=== PATIENT | male | born 1960 | race Caucasian/White ===

== ENCOUNTER 2019-02-13 20:25 | Emergency (ER) | payer OTHER | END 2019-02-14 08:28 | disposition home or self-care (01) | LOC: JER 20:25 ==

== ENCOUNTER 2019-02-14 09:19 | Inpatient (IN) | payer OTHER ==
[2019-02-14 10:23] VITALS: BMI 26.6
--- NOTE | 2019-02-14 11:17 | HP ---
COWS - Scale Resting Pulse: 0= MA 80 or Below Sweatin= Chills/Flushing Restless Observation: 1= Difficult to Sit Still Pupil Size: 1= Pupils >than Normal Bone or Joint Aches: 2= Severe Diffuse Aches Runny Nose/ Eye Tearin= Runny Nose/Eyes GI Upset > 30mins: 1= Stomach Cramp Tremor Observation: 2= Slight Tremor Visible Yawning Observation: 1= 1-2x During Session Anxiety or Irritability: 2=Irritable/Anxious Goose Flesh Skin: 0=Smooth Skin COWS Score: 13 CIWA Score Nausea/Vomitin Muscle Tremors: 2 Anxiety: 2 Agitation: 3 Paroxysmal Sweats: 1-Minimal Palms Moist Orientation: 0-Oriented Tacttile Disturbances: 1-Very Mild Itch/Numbness Auditory Disturbances: 0-None Visual Disturbances: 0-None Headache: 2-Mild CIWA-Ar Total Score: 13 - Admission Criteria OASAS Guidelines: Admission for Medically Managed Detox: Requires at least one of the followin. CIWA greater than 12 2. Seizures within the past 24 hours 3. Delirium tremens within the past 24 hours 4. Hallucinations within the past 24 hours 5. Acute intervention needed for co occurring medical disorder 6. Acute intervention needed for co occurring psychiatric disorder 7. Severe withdrawal that cannot be handled at a lower level of care (continued vomiting, continued diarrhea, abnormal vital signs) requiring intravenous medication and/or fluids 8. Admission [facility] Chief Complaint: patient medically clear from er [facility] to [facility] for detox Allergies/Adverse Reactions: Allergies Allergy/AdvReac Type Severity Reaction Status Date / Time No Known Allergies Allergy Verified 02/14/19 10:10 History of Present Illness: this 59 years old with heroin and xanax ,klonopin dependence,seen in [facility] on but has swelling and erythema left leg for 1 week, sent to ER at [facility] had venous droppler negative for DVT was place on clindamycin 450 mgs po tid, history of hiv since 1991 non compliance with medication weight loss denied seizure denied syncope longest period of sobriety 3 years form 1989 to 1991 anxiety,depression,insomnia Exam Limitations: No Limitations - Ebola screening Have you traveled outside of the country in the last 21 days: No Have you had contact with anyone from an Ebola affected area: No Do you have a fever: No - Review of Systems Constitutional: Chills, Loss of Appetite, Malaise, Night Sweats, Changes in sleep, Weakness, Unintentional Wgt. Loss EENT: reports: Tearing, Nose Congestion Respiratory: reports: No Symptoms reported Cardiac: reports: No Symptoms Reported GI: reports: Nausea, Poor Appetite, Abdominal cramping : reports: No Symptoms Reported Integumentary: reports: Dryness Neuro: reports: Tremors Endocrine: reports: No Symptoms Reported Hematology: reports: No Symptoms Reported, Other (hiv) Psychiatric: reports: No Sypmtoms Reported, Judgement Intact, Mood/Affect Appropiate, Orientated x3 Other Systems: Reviewed and Negative Patient History - Patient Medical History Hx Anemia: No Hx Asthma: No Hx Chronic Obstructive Pulmonary Disease (COPD): No Hx Cancer: No Hx Cardiac Disorders: No Hx Congestive Heart Failure: No Hx Hypertension: No Hx Hypercholesterolemia: Yes Hx Pacemaker: No HX Cerebrovascular Accident: No Hx Seizures: No Hx Dementia: No Hx Diabetes: No Hx Gastrointestinal Disorders: No Hx Liver Disease: No Hx Genitourinary Disorders: No Hx Sexually Transmitted Disorders: Yes (Patient reported treated for HPV in the past.) Hx Renal Disease (ESRD): No Hx Thyroid Disease: No Hx Human Immunodeficiency Virus (HIV): Yes (since 1991 non compliance) Hx Hepatitis C: Yes Hx Depression: Yes Hx Suicide Attempt: No Hx Bipolar Disorder: No Hx Schizophrenia: No Other Medical History: no suicidal,no homicidal - Patient Surgical History Past Surgical History: Yes Hx Neurologic Surgery: No Hx Cataract Extraction: Yes (both eyes in 2009) Hx Cardiac Surgery: No Hx Lung Surgery: No Hx Breast Surgery: No Hx Breast Biopsy: No Hx Abdominal Surgery: No Hx Appendectomy: No Hx Cholecystectomy: No Hx Genitourinary Surgery: No Hx Section: No Hx Orthopedic Surgery: No Other Surgical History: biopsy lymph node left groin Anesthesia Reaction: No - PPD History Previous Implant?: Yes Documented Results: Negative w/o proof Implanted On Prior [facility] Admission?: Yes Date: 04/14/15 Results: 0 mm PPD to be Administered?: No - Smoking Cessation Smoking history: Current every day smoker Have you smoked in the past 12 months: Yes Aproximately how many cigarettes per day: 10 Cigars Per Day: 0 Hx Chewing Tobacco Use: No Initiated information on smoking cessation: Yes 'Breaking Loose' booklet given: 02/14/19 - Substance & Tx. History Hx Alcohol Use: No Hx Substance Use: Yes Substance Use Type: Heroin, Tranquilizers Hx Substance Use Treatment: Yes ([facility] rehab 04/12/15 to 05/18/15) - Substances abused Heroin Substance route: Inhalation Frequency: Daily Amount used: 2 bags Age of first use: 25 Date of last use: 02/13/19 Alprazolam (Xanax) Substance route: Oral Frequency: Daily Amount used: 2mg a day Age of first use: 35 Date of last use: 02/13/19 Benzodiazepine (Klonopin) Substance route: Oral Frequency: Daily Amount used: 5-6mg a day Age of first use: 40 Date of last use: 02/13/19 Family Disease History - Family Disease History Family History: Denies Admission Physical Exam S - Vital Signs Vital Signs: Vital Signs - 24 hr 02/14/19 02/14/19 10:09 10:50 Temperature 97.5 F L 97.5 F L Pulse Rate 70 70 Respiratory 14 14 Rate Blood Pressure 107/69 107/69 - Physical General Appearance: Yes: Moderate Distress, Tremorous, Irritable, Sweating, Anxious HEENTM: Yes: Normal ENT Inspection, MEHRDAD, Pharynx Normal Respiratory: Yes: Lungs Clear, Normal Breath Sounds, No Respiratory Distress Neck: Yes: Within Normal Limits, Supple, Trachea in good position Breast: Yes: Within Normal Limits Cardiology: Yes: Within Normal Limits, Regular Rhythm, Regular Rate, S1, S2 Abdominal: Yes: Within Normal Limits, Normal Bowel Sounds, Non Tender, Flat, Soft Genitourinary: Yes: Within Normal Limits Back: Yes: Muscle Spasm Extremities: Yes: Tremors, Erythema (erythema left leg with swelling varicose vein both legs), Inflammation Neurological: Yes: payment manager II-XII NML intact, Fully Oriented, Alert, Motor Strength 5/5 Integumentary: Yes: Dry Lymphatic: Yes: Within Normal Limits - Diagnostic (1) Opioid dependence with withdrawal Current Visit: Yes Status: Acute (2) Sedative, hypnotic or anxiolytic dependence with withdrawal, uncomplicated Current Visit: Yes Status: Acute (3) HIV (human immunodeficiency virus infection) Current Visit: No Status: Chronic (4) Weight decreased Current Visit: No Status: Active (5) Syncope Current Visit: Yes Status: Acute (6) Cellulitis of left lower extremity Current Visit: Yes Status: Acute (7) Insomnia secondary to depression with anxiety Current Visit: Yes Status: Acute (8) Nicotine dependence Current Visit: Yes Status: Acute Cleared for Admission [facility] - Detox or Rehab [facility] Level of Care: Medically Managed Detox Regimen/Protocol: Methadone/Valium Breathalyzer - Breathalyzer Breathalyzer: 0 Urine Drug Screen - Test Device Lot number: [id number] Expiration date: 11/01/19 - Control Is test valid?: Yes - Results Drug screen NEGATIVE: No Urine drug screen results: FEN-Fentanyl, MOP-Opiates, MTD-Methadone, BZO- Benzodiazepines, BUP-Suboxone Inpatient Rehab Admission - Rehab Decision to Admit Inpatient rehab admission?: No
[2019-02-14] MEDS ORDERED: MELATONIN 5 MG TABLETS PO PRN (11:42)
[2019-02-14] MEDS ORDERED: BISMUTH SUBSALICYLATE 524 MG/30 ML UD PO PRN (11:42)
[2019-02-14] MEDS ORDERED: hydrOXYzine PAMOATE 25 MG CAPSULE (FP) PO PRN (11:42)
[2019-02-14] MEDS ORDERED: IBUPROFEN 400 MG TABLET (FP) PO PRN (11:42)
[2019-02-14] MEDS ORDERED: MAGNESIUM HYDROX 2400MG/30ML ORAL SUSPENSION 30 ML CUP PO PRN (11:42)
[2019-02-14] MEDS ORDERED: METHOCARBAMOL 500 MG TABLET PO PRN (11:42)
[2019-02-14] MEDS ORDERED: MENTHOL/PHENOL 1 EACH UD MM PRN (11:42)
[2019-02-14] MEDS ORDERED: cloNIDine HCL 0.1 MG TABLET PO PRN (11:42)
[2019-02-14] MEDS ORDERED: ACETAMINOPHEN 325 MG TABLET (FP) PO PRN ×2 (11:42)
[2019-02-14] MEDS ORDERED: MAGNESIUM CITRATE 300 ML BOTTLE PO PRN (11:42)
[2019-02-14] MEDS ORDERED: MAG HYDROX/AL HYDROX/SIMETH 30 ML UNIT-DOSE CUP PO PRN (11:42)
[2019-02-14] MEDS ORDERED: diazePAM 5 MG TABLET PO PRN (11:42)
[2019-02-14] MEDS: diazePAM 5 MG TABLET PO SCH ×2 (13:44→22:07)
[2019-02-14] MEDS ORDERED: METHADONE HCL 10 MG TABLET (FOR DETOX USE ONLY) PO ONE (14:00)
[2019-02-14 15:12] LABS: ALBUMIN 3.5 g/dl (3.4-5.0); BILIRUBIN,TOTAL 0.7 mg/dL (0.2-1); BLOOD UREA NITROGEN 26.4 mg/dL (7-18); CALCIUM 8.6 mg/dL (8.5-10.1); CREATININE 1.2 mg/dL (0.55-1.3); POTASSIUM 4.1 mmol/L (3.5-5.1); TOT PROT 7.1 g/dl (6.4-8.2)
[2019-02-14 15:23] LABS: HEMATOCRIT 36.2 % (35.4-49); HEMOGLOBIN 12.1 GM/dL (11.7-16.9); MCH 29.7 pg (25.7-33.7); MCHC 33.5 g/dl (32.0-35.9); MEAN CELL VOLUME 88.6 fl (80-96); MEAN PLT VOLUME 9.8 fl (7.5-11.1); PLATELET COUNT 214 K/MM3 (134-434); RBC 4.08 M/mm3 (4.00-5.60); RDW 15.7 % (11.9-15.9); WHITE BLOOD COUNT 4.6 K/mm3 (4.0-10.0)
[2019-02-14] MEDS: CLINDAMYCIN HCL 150 MG CAPSULE (FP) PO SCH ×2 (16:05→22:07)
[2019-02-14] MEDS: THIAMINE HCL 100 MG TABLET (FP) PO SCH (22:07)
[2019-02-15] MEDS: diazePAM 5 MG TABLET PO SCH ×3 (06:17→22:10)
[2019-02-15] MEDS: CLINDAMYCIN HCL 150 MG CAPSULE (FP) PO SCH ×3 (06:17→22:10)
[2019-02-15] MEDS ORDERED: METHADONE HCL 5 MG TABLET (FOR DETOX USE ONLY) PO ONE (10:00)
[2019-02-15] MEDS: PRENATAL VITAMINS W/ FOLIC ACID TABLET (FP) PO SCH (10:29)
--- NOTE | 2019-02-15 15:44 | PN ---
S CIWA - CIWA Score Nausea/Vomitin Muscle Tremors: 3 Anxiety: 3 Agitation: 0-Normal Activity Paroxysmal Sweats: No Perspiration Orientation: 0-Oriented Tacttile Disturbances: 1-Very Mild Itch/Numbness Auditory Disturbances: 2-Mild Harshness/Frighten Visual Disturbances: 0-None Headache: 0-None Present CIWA-Ar Total Score: 11 S COWS - Scale Resting Pulse: 1= [place] 81-100 Sweatin= No chills or Flushing Restless Observation: 0= Sits Still Pupil Size: 0= Normal to Room Light Bone or Joint Aches: 0= None Runny Nose/ Eye Tearin= Nasal Congestion GI Upset > 30mins: 2= Nausea/Diarrhea Tremor Observation of Outstretched Hands: 2= Slight Tremor Visible Yawning Observation: 1= 1-2x During Session Anxiety or Irritability: 2=Irritable/Anxious Goose Flesh Skin: 3=Piloerection COWS Score: 12 S Progress Note (SOAP) Subjective: Anxious, Tremors, Fatigue, Interrupted Sleep. Objective: PATIENT A & O X 3, OBSERVED AMBULATING ON UNIT UNASSISTED. IN NO ACUTE DISTRESS. 02/15/19 15:42 Vital Signs Temperature 98.6 F 02/15/19 13:39 Pulse Rate 88 02/15/19 13:39 Respiratory Rate 18 02/15/19 13:39 Blood Pressure 120/88 02/15/19 13:39 O2 Sat by Pulse Oximetry (%) Laboratory Tests 02/14/19 02/14/19 02/14/19 11:45 11:45 11:45 WBC 4.6 RBC 4.08 Hgb 12.1 Hct 36.2 MCV 88.6 MCH 29.7 MCHC 33.5 RDW 15.7 Plt Count 214 MPV 9.8 Sodium 140 Potassium 4.1 Chloride 106 Carbon Dioxide 27 Anion Gap 7 L BUN 26.4 H Creatinine 1.2 Est GFR (CKD-EPI)AfAm 76.25 Est GFR (CKD-EPI)NonAf 65.79 Random Glucose 104 Calcium 8.6 Total Bilirubin 0.7 AST 63 H ALT 41 Alkaline Phosphatase 80 Total Protein 7.1 Albumin 3.5 RPR Titer Nonreactive LABS NOTED. RESULTS OF DETOX ADMISSION QFT /TB TEST PENDING. 02/15/19 15:43 Assessment: 02/15/19 15:43 WITHDRAWAL SYMPTOMS. ELEVATED AST LEVEL. Plan: CONTINUE DETOX. INCREASE DAILY PO WATER INTAKE.
[2019-02-15] MEDS: THIAMINE HCL 100 MG TABLET (FP) PO SCH (22:10)
[2019-02-16] MEDS: diazePAM 5 MG TABLET PO SCH ×2 (06:38→17:58)
[2019-02-16] MEDS: CLINDAMYCIN HCL 150 MG CAPSULE (FP) PO SCH ×3 (06:38→21:17)
[2019-02-16] MEDS ORDERED: METHADONE HCL 10 MG TABLET (FOR DETOX USE ONLY) PO ONE (10:00)
--- NOTE | 2019-02-16 10:57 | PN ---
[facility] CIWA - CIWA Score Nausea/Vomitin-Mild Nausea/No Vomiting Muscle Tremors: 1-None Visible, but [place] Anxiety: 1-Mildly Anxious Agitation: 0-Normal Activity Paroxysmal Sweats: No Perspiration Orientation: 0-Oriented Tacttile Disturbances: 0-None Auditory Disturbances: 0-None Visual Disturbances: 0-None Headache: 0-None Present CIWA-Ar Total Score: 3 S Progress Note (SOAP) Subjective: Patient is mildly in withdrawals. Some anxiety but more for planning after detox completion. He will confer with his sister about what he will do upon detox completion. Objective: 02/16/19 10:56 Vitals: BP:137/77 P:60 R:18 T:97.7 Laboratory 02/14/19 02/14/19 02/14/19 11:45 11:45 11:45 WBC 4.6 K/mm3 K/mm3 (4.0-10.0) RBC 4.08 M/mm3 M/mm3 (4.00-5.60) Hgb 12.1 GM/dL GM/dL (11.7-16.9) Hct 36.2 % % (35.4-49) MCV 88.6 fl fl (80-96) MCH 29.7 pg pg (25.7-33.7) MCHC 33.5 g/dl g/dl (32.0-35.9) RDW 15.7 % % (11.9-15.9) Plt Count 214 K/MM3 K/MM3 (134-434) MPV 9.8 fl fl (7.5-11.1) Sodium 140 mmol/L mmol/L (136-145) Potassium 4.1 mmol/L mmol/L (3.5-5.1) Chloride 106 mmol/L mmol/L (98-107) Carbon Dioxide 27 mmol/L mmol/L (21-32) Anion Gap 7 MMOL/L L MMOL/L (8-16) BUN 26.4 mg/dL H mg/dL (7-18) Creatinine 1.2 mg/dL mg/dL (0.55-1.3) Est GFR (CKD-EPI)AfAm 76.25 Est GFR (CKD-EPI)NonAf 65.79 Random Glucose 104 mg/dL mg/dL (74-106) Calcium 8.6 mg/dL mg/dL (8.5-10.1) Total Bilirubin 0.7 mg/dL mg/dL (0.2-1) AST 63 U/L H U/L (15-37) ALT 41 U/L U/L (13-61) Alkaline Phosphatase 80 U/L U/L (45-117) Total Protein 7.1 g/dl g/dl (6.4-8.2) Albumin 3.5 g/dl g/dl (3.4-5.0) RPR Titer Nonreactive (NONREACTIVE) Assessment: 02/16/19 10:57 1. Alcohol Dependence 2. Dehydration 3. LFT's abnormality Plan: 1. Alcohol Dependence Continue detox protocol 2. Dehydration: Apparent from elevated BUN Encourage PO Fluids. 3. Elevated AST: Noted and consistent with alcohol consumption. Advised that he must stop ETOH use as it will affect his liver with possible fatty liver and cirrhosis in the long run. Dr. Warner
[2019-02-16] MEDS: PRENATAL VITAMINS W/ FOLIC ACID TABLET (FP) PO SCH (11:03)
[2019-02-16] MEDS: THIAMINE HCL 100 MG TABLET (FP) PO SCH (21:17)
[2019-02-17] MEDS ORDERED: diazePAM 5 MG TABLET PO ONE (06:00)
[2019-02-17] MEDS ORDERED: METHADONE HCL 5 MG TABLET (FOR DETOX USE ONLY) PO ONE (06:00)
[2019-02-17] MEDS: CLINDAMYCIN HCL 150 MG CAPSULE (FP) PO SCH (06:48)
[2019-02-17 09:27] VITALS: BP 124/81; PULSE 90; TEMP 98
--- NOTE | 2019-02-17 10:18 | DS ---
[facility] Detox Discharge Summary Admission Date: 02/14/19 Discharge Date: 02/17/19 - History Present History: Opioid Dependence, Sedative Dependence Additional Comments: Pt is medically cleared and is discharged today. Pt has completed his detox protocol. Pt is encouraged to follow-up with a CD outpatient program and also to follow-up with his pmd. Clindamycin 450mg po 3times/day for 4days prescription has been sent to [facility] for the treatment of left lower extremity cellulitis. Explained to pt the importance of completing his antibiotic treatment regimen. Pt verbalized understanding. Pt is alert and oriented x3 and in no respiratory distress. Pertinent Past History: h/o HIV+, opioid and benzo use disorder. - Physical Exam Results Vital Signs: Vital Signs Temperature 98.0 F 02/17/19 09:27 Pulse Rate 90 02/17/19 09:27 Respiratory Rate 18 02/17/19 09:27 Blood Pressure 124/81 02/17/19 09:27 O2 Sat by Pulse Oximetry (%) Vital Signs 02/17/19 02/17/19 02/17/19 03:30 06:38 09:27 Temperature 97.5 F L 98.0 F Pulse Rate 57 L 90 Respiratory 18 16 18 Rate Blood Pressure 144/78 124/81 Lab Results WBC 4.6 K/mm3 (4.0-10.0) 02/14/19 11:45 RBC 4.08 M/mm3 (4.00-5.60) 02/14/19 11:45 Hgb 12.1 GM/dL (11.7-16.9) 02/14/19 11:45 Hct 36.2 % (35.4-49) 02/14/19 11:45 MCV 88.6 fl (80-96) 02/14/19 11:45 MCHC 33.5 g/dl (32.0-35.9) 02/14/19 11:45 RDW 15.7 % (11.9-15.9) 02/14/19 11:45 Plt Count 214 K/MM3 (134-434) 02/14/19 11:45 Sodium 140 mmol/L (136-145) 02/14/19 11:45 Potassium 4.1 mmol/L (3.5-5.1) 02/14/19 11:45 Chloride 106 mmol/L (98-107) 02/14/19 11:45 Carbon Dioxide 27 mmol/L (21-32) 02/14/19 11:45 Anion Gap 7 MMOL/L (8-16) L 02/14/19 11:45 BUN 26.4 mg/dL (7-18) H 02/14/19 11:45 Creatinine 1.2 mg/dL (0.55-1.3) 02/14/19 11:45 Random Glucose 104 mg/dL (74-106) 02/14/19 11:45 Calcium 8.6 mg/dL (8.5-10.1) 02/14/19 11:45 Labs noted. Pertinent Admission Physical Exam Findings: withdrawal symptoms. - Treatment Hospital Course: Detox Protocol Followed, Detoxed Safely, Responded well, Discharged Condition Good - Medication Discharge Medications: Ambulatory Orders Zolpidem Tartrate [Ambien] 10 mg PO HS 04/16/15 Darunavir/Cobicistat [Prezcobix 800 mg-150 mg Tablet] 800 mg PO DAILY 02/14/19 Dolutegravir Sodium [Tivicay] 50 mg PO DAILY 02/15/19 Clindamycin [Cleocin -] 450 mg PO Q8H 4 Days #36 capsule 02/17/19 - Diagnosis (1) Cellulitis of left lower extremity Current Visit: Yes Status: Acute (2) Nicotine dependence Current Visit: Yes Status: Acute (3) Opioid dependence with withdrawal Current Visit: Yes Status: Acute (4) Sedative, hypnotic or anxiolytic dependence with withdrawal, uncomplicated Current Visit: Yes Status: Acute (5) Alcohol dependence Current Visit: No Status: Chronic (6) Cocaine dependence Current Visit: No Status: Chronic (7) HIV (human immunodeficiency virus infection) Current Visit: No Status: Chronic (8) Hepatitis C carrier Current Visit: No Status: Chronic (9) Hypercholesteremia Current Visit: No Status: Chronic - AMA Did Patient Leave Against Medical Advice: No S CIWA - CIWA Score Nausea/Vomitin-No Nausea/No Vomiting Muscle Tremors: None Anxiety: 2 Agitation: 1-Slight > Activity Paroxysmal Sweats: No Perspiration Orientation: 0-Oriented Tacttile Disturbances: 0-None Auditory Disturbances: 0-None Visual Disturbances: 0-None Headache: 0-None Present CIWA-Ar Total Score: 3 BHS COWS - Scale Resting Pulse: 1= [place] 81-100 Sweatin= No chills or Flushing Restless Observation: 0= Sits Still Pupil Size: 0= Normal to Room Light Bone or Joint Aches: 1= Mild Discomfort Runny Nose/ Eye Tearin= None GI Upset > 30mins: 0= None Tremor Observation of Outstretched Hands: 0= None Yawning Observation: 1= 1-2x During Session Anxiety or Irritability: 0= None Goose Flesh Skin: 0=Smooth Skin COWS Score: 3
== END 2019-02-17 10:10 | disposition home or self-care (01) | DRG 897 ==
LOC: YASAS 09:19 → Y6N 13:01
PROVIDERS: ADMIT Surgery; ATTEND Surgery
PROC: HZ2ZZZZ Detoxification Services for Substance Abuse Treatment (ICD-10-PCS; principal; 2019-02-14)
DX: F11.23 Opioid dependence with withdrawal (principal); F14.20 Cocaine dependence, uncomplicated; B20 Human immunodeficiency virus [HIV] disease; L03.116 Cellulitis of left lower limb; F13.230 Sedative, hypnotic or anxiolytic dependence with withdrawal, uncomplicated; F17.210 Nicotine dependence, cigarettes, uncomplicated; E78.00 Pure hypercholesterolemia, unspecified; B18.2 Chronic viral hepatitis C; E86.0 Dehydration; R74.0 Nonspecific elevation of levels of transaminase and lactic acid dehydrogenase [LDH]; Z91.14 Patient's other noncompliance with medication regimen; Z87.438 Personal history of other diseases of male genital organs
CPT/HCPCS: 36415; 80053; 85027; 86480; 86593